=== PATIENT | female | born 1955 | race Caucasian/White ===

== ENCOUNTER 2017-07-26 09:37 | Emergency (ER) | payer SELFPAY ==
--- NOTE | 2017-07-26 20:21 | RAD ---
CHEST TWO VIEWS 07/26/2017 Comparison is made with an older study of 07/26/2008 done at [facility] [place]. The heart is normal in size, and the lungs are clear. No infiltrate or effusion was seen to suggest pneumonia. There is no vascular congestion or edema. The trachea is midline. IMPRESSION: No acute thoracic findings. POS: HOME
== END 2017-07-26 10:41 | disposition home or self-care (01) ==
LOC: BURERS 09:37
DX: J20.9 Acute bronchitis, unspecified (principal); Z87.891 Personal history of nicotine dependence
CPT/HCPCS: 71020

== ENCOUNTER 2018-12-15 15:21 | Emergency (ER) | payer SELFPAY ==
[2018-12-15] MEDS ORDERED: Dexamethasone 4 MG TAB ONE (16:17)
--- NOTE | 2018-12-15 20:13 | RAD ---
CHEST TWO VIEWS 12/15/18 Comparison is made with a 07/26/17 study. The heart is normal in size. The lungs are clear. There is no definite infiltrate or effusion. Minima l haziness in the right cardiophrenic angle is similar to the prior exam. There is no vascular conges tion. The trachea is midline. IMPRESSION: No acute thoracic finding. POS: HOME
== END 2018-12-15 16:13 | disposition home or self-care (01) ==
LOC: BURERS 15:21
DX: J20.9 Acute bronchitis, unspecified (principal)
CPT/HCPCS: 71046; J8540

== ENCOUNTER 2018-12-18 14:33 | Emergency (ER) | payer SELFPAY | END 2018-12-18 15:00 | disposition home or self-care (01) | LOC: BURERS 14:33 | DX: J30.9 Allergic rhinitis, unspecified (principal) | CPT/HCPCS: 99283 ==